=== PATIENT | male | born 1980 | race Caucasian/White ===

== ENCOUNTER 2020-05-03 10:02 | Outpatient (CLI) | payer OTHER, SELFPAY ==
[2020-05-03 10:17] LABS: Basophils Absolute Auto 0.05 K/mm3 (0.00-0.10); Eosinophils Absolute Auto 0.24 K/mm3 (0.02-0.50); Eosinophils Percent Auto 4.7 % (1.0-6.0); Hemoglobin 15.8 g/dL (14.0-18.0); Immature Granulocyte Absolute 0.01 K/mm3 (0.00-0.00); Immature Granulocyte Percent A 0.2 % (0.0-0.0); Lymphocytes Absolute Auto 1.38 K/mm3 (1.10-4.50); Lymphocytes Percent Auto 27.2 % (18.0-42.0); Mean Corpuscular HGB Conc 33.6 g/dL (32.0-36.0); Mean Corpuscular Hemoglobin 27.7 pg (27.0-31.0); Mean Corpuscular Volume 82.3 fL (78.0-102.0); Mean Platelet Volume 9.3 fl (8.7-11.0); Monocytes Absolute Auto 0.72 K/mm3 (0.10-0.90); Monocytes Percent Auto 14.2 % (2.0-11.0); Neutrophils Absolute Auto 2.7 K/mm3 (1.7-7.2); Neutrophils Percent Auto 52.7 % (50.0-70.0); Platelet Count Result 231 K/mm3 (150-420); Red Blood Count 5.71 M/mm3 (4.70-6.10); Red Cell Distribution Width 13.2 % (11.6-14.4); White Blood Count 5.1 K/mm3 (4.8-10.8)
[2020-05-03 10:31] LABS: Hemoglobin A1C 6.4 % (<5.7)
[2020-05-03 10:58] LABS: Microalbumin Urine Random > 400.0 mg/L
[2020-05-03 10:59] LABS: Creatinine Urine 76.65 mg/dL (40-278); MALB Creatinine Ratio 521.8 mg/g (0-30)
[2020-05-03 13:41] LABS: Alanine Aminotransferase 47 U/L (16-63); Albumin Level 3.5 g/dL (3.4-5.0); Anion Gap 13.4 mmol/L (7-16); Aspartate Amino Transferase 25 U/L (15-37); Bilirubin,Total 0.3 mg/dL (0.00-1.00); Blood Urea Nitrogen 13 mg/dL (7-18); Calcium 9.1 mg/dL (8.5-10.1); Carbon Dioxide 25 mmol/L (21-32); Chloride 99 mmol/L (98-108); Estimated Glomerular Filt Rate > 60; Glucose 107 mg/dL (70-99); Osmolality Calculated 276 mOsm/kg (285-295); Potassium 4.4 mmol/L (3.5-5.1); Sodium 133 mmol/L (136-145); Total Protein 6.9 g/dL (6.4-8.2)
[2020-05-03 13:42] LABS: Alkaline Phosphatase 66 U/L (46-116); Cholesterol 173 mg/dL (0-200); HDL Direct 21 mg/dL (40-60); LDL Cholesterol Calculated 79 mg/dL (<130); Triglycerides 364 mg/dL (0-150)
== END 2020-05-03 10:03 | disposition home or self-care (01) ==
PROVIDERS: PCP Nurse Practitioner Family; Visit Provider Nurse Practitioner Family
DX: E78.5 Hyperlipidemia, unspecified (principal); I10 Essential (primary) hypertension; E11.9 Type 2 diabetes mellitus without complications
CPT/HCPCS: 36415; 80053; 80061; 82043; 83036; 85025

== ENCOUNTER 2021-07-25 10:48 | Outpatient (CLI) | payer OTHER, SELFPAY ==
[2021-07-25 11:52] LABS: Hemoglobin A1C 6.9 % (<5.7)
[2021-07-25 12:54] LABS: Alanine Aminotransferase 60 U/L (16-63); Albumin Level 3.6 g/dL (3.4-5.0); Alkaline Phosphatase 69 U/L (46-116); Anion Gap 12 mmol/L (8-16); Aspartate Amino Transferase 29 U/L (15-37); Bilirubin,Total 0.6 mg/dL (0.00-1.00); Blood Urea Nitrogen 11 mg/dL (7-18); Calcium 8.6 mg/dL (8.5-10.1); Carbon Dioxide 24 mmol/L (21-32); Chloride 100 mmol/L (98-108); Estimated Glomerular Filt Rate > 60; Free T4 Free Thyroxine 0.85 ng/dL (0.76-1.46); Glucose 115 mg/dL (70-99); Osmolality Calculated 282 mOsm/kg (285-295); Potassium 4.5 mmol/L (3.5-5.1); Sodium 136 mmol/L (136-145); Thyroid Stimulating Hormone 1.92 uIU/mL (0.36-3.74); Vitamin B12 429 pg/mL (193-986)
[2021-07-28 13:33] LABS: Vitamin D 25 Hydroxy 20 ng/mL (30-100)
[2021-07-30 17:46] LABS: Testosterone Free 178.3 pg/mL (35.0-155.0); Testosterone Total 743 ng/dL (250-1100)
== END 2021-07-25 10:49 | disposition home or self-care (01) ==
LOC: CHSLAB 10:52
PROVIDERS: PCP Nurse Practitioner Family; Visit Provider Nurse Practitioner Family
DX: E11.9 Type 2 diabetes mellitus without complications (principal); R53.83 Other fatigue; E53.8 Deficiency of other specified B group vitamins; Z79.899 Other long term (current) drug therapy
CPT/HCPCS: 36415; 80053; 82306; 82607; 83036; 84402; 84403; 84439; 84443

== ENCOUNTER 2021-09-10 15:17 | Outpatient (CLI) | payer OTHER, SELFPAY ==
[2021-09-10 16:21] LABS: SARS-CoV-2 RNA PCR Negative (Negative)
== END 2021-09-10 15:18 | disposition home or self-care (01) ==
LOC: CHSLAB 15:22
PROVIDERS: PCP Nurse Practitioner Family; Visit Provider Nurse Practitioner Family
DX: Z20.822 Contact with and (suspected) exposure to COVID-19 (principal)
CPT/HCPCS: C9803; U0003; U0005

== ENCOUNTER 2021-09-13 08:06 | Outpatient (CLI) | payer OTHER, SELFPAY ==
[2021-09-13 09:06] LABS: SARS-CoV-2 RNA PCR Negative (Negative)
== END 2021-09-13 08:07 | disposition home or self-care (01) ==
PROVIDERS: PCP Nurse Practitioner Family; Visit Provider Nurse Practitioner Family
DX: Z20.822 Contact with and (suspected) exposure to COVID-19 (principal)
CPT/HCPCS: C9803; U0003; U0005

== ENCOUNTER 2022-03-13 09:32 | Outpatient (CLI) | payer OTHER, SELFPAY ==
--- NOTE | 2022-03-13 09:35 | ECG_ITS ---
Measurements Intervals [place] Rate: 67 P: 54 AK: 172 QRS: 47 QRSD: 97 T: 51 QT: 370 QTc: 391 Interpretive Statements SINUS RHYTHM NONSPECIFIC T-WAVE ABNORMALITY ABNORMAL ECG NO PREVIOUS ECG AVAILABLE FOR COMPARISON Electronically Signed On 03-13-2022 16:39:33 CDT by David Dykes M.D.
[2022-03-13 09:44] LABS: Basophils Absolute Auto 0.07 K/mm3 (0.00-0.10); Basophils Percent Auto 0.9 % (0.0-1.0); Eosinophils Absolute Auto 0.17 K/mm3 (0.02-0.50); Eosinophils Percent Auto 2.1 % (1.0-6.0); Hematocrit 49.6 % (40.0-54.0); Immature Granulocyte Absolute 0.05 K/mm3 (0.00-0.00); Immature Granulocyte Percent A 0.6 % (0.0-0.0); Lymphocytes Absolute Auto 1.11 K/mm3 (1.10-4.50); Lymphocytes Percent Auto 13.8 % (18.0-42.0); Mean Corpuscular HGB Conc 32.3 g/dL (32.0-36.0); Mean Corpuscular Hemoglobin 26.4 pg (27.0-31.0); Mean Corpuscular Volume 81.7 fL (78.0-102.0); Mean Platelet Volume 8.9 fl (8.7-11.0); Monocytes Absolute Auto 0.89 K/mm3 (0.10-0.90); Neutrophils Absolute Auto 5.8 K/mm3 (1.7-7.2); Neutrophils Percent Auto 71.6 % (50.0-70.0); Platelet Count Result 280 K/mm3 (150-420); Red Blood Count 6.07 M/mm3 (4.70-6.10); Red Cell Distribution Width 13.9 % (11.6-14.4); White Blood Count 8.1 K/mm3 (4.8-10.8)
[2022-03-13 10:15] LABS: Hemoglobin A1C 8.5 % (<5.7)
[2022-03-13 10:38] LABS: Alanine Aminotransferase 53 U/L (16-63); Albumin Level 3.6 g/dL (3.4-5.0); Alkaline Phosphatase 77 U/L (46-116); Anion Gap 11 mmol/L (8-16); Aspartate Amino Transferase 30 U/L (15-37); Bilirubin,Total 0.4 mg/dL (0.00-1.00); Blood Urea Nitrogen 12 mg/dL (7-18); Calcium 9.3 mg/dL (8.5-10.1); Carbon Dioxide 26 mmol/L (21-32); Chloride 96 mmol/L (98-108); Cholesterol 206 mg/dL (0-200); Estimated Glomerular Filt Rate > 60; Glucose 179 mg/dL (70-99); HDL Direct 34 mg/dL (40-60); LDL Cholesterol Calculated 77 mg/dL (<130); Osmolality Calculated 279 mOsm/kg (285-295); Potassium 4.6 mmol/L (3.5-5.1); Sodium 133 mmol/L (136-145); Total Protein 7.4 g/dL (6.4-8.2); Triglycerides 477 mg/dL (0-150)
[2022-03-13 10:44] LABS: LDL Cholesterol Direct 97 mg/dL (0-130)
[2022-03-18 18:03] LABS: Vitamin D 25 Hydroxy 14 ng/mL (30-100)
== END 2022-03-13 09:33 | disposition home or self-care (01) ==
PROVIDERS: PCP Nurse Practitioner Family; Visit Provider Nurse Practitioner Family
DX: Z00.00 Encounter for general adult medical examination without abnormal findings (principal); R07.89 Other chest pain; I10 Essential (primary) hypertension; E11.9 Type 2 diabetes mellitus without complications; E78.5 Hyperlipidemia, unspecified; Z79.899 Other long term (current) drug therapy; E55.9 Vitamin D deficiency, unspecified
CPT/HCPCS: 36415; 80053; 80061; 82306; 83036; 83721; 85025; 93005

== ENCOUNTER 2022-04-04 21:28 | Emergency (ER) | payer OTHER, SELFPAY ==
--- NOTE | ~2022-04-04 | XR_ITS ---
EXAMINATION: XR chest 2V DATE: 04/04/2022 21:45 INDICATION: Cough and fever. Right chest pain. TECHNIQUE: Frontal and lateral views of the chest were obtained. COMPARISON: Chest 2 views 04/15/2017 FINDINGS: There are airspace opacities in right middle lobe, consistent with pneumonia. No pleural ef fusion or pneumothorax. The heart size is normal. IMPRESSION: 1. Right middle lobe pneumonia. Reviewed, dictated and finalized at location A.
[2022-04-04 21:34] VITALS: BP 162/86; PULSE 98; RESP 20; TEMP 36.9; O2SAT 94
--- NOTE | 2022-04-04 21:34 | ED.URI ---
HPI - URI/Sore Throat General Chief Complaint: Upper Respiratory Infection Stated Complaint: right side pain, fever, chest pain Time Seen by Provider: 04/04/22 21:37 Source: patient, family and RN notes reviewed Mode of arrival: ambulatory Limitations: no limitations History of Present Illness MD elicited complaint: fever and cough Onset (ago): week(s) (2) Consistency: intermittent Severity: moderate Description of mucous: clear Able to tolerate fluids by mouth: Yes Exacerbating factors: exertion and deep breaths Relieving factors: NSAID Associated symptoms: fever, chills, myalgias, headache, rhinorrhea, cough, chest pain and diarrhea Treatments prior to arrival: other ( 7 day steroid dose pack that belonged to his son) Related Data Home Medications Medication Instructions Recorded Confirmed omega-3 fatty acids 1,000 mg 2,000 mg PO BID cap 05/03/20 04/04/22 capsule Allergies Allergy/AdvReac Type Severity Reaction Status Date / Time lisinopril Allergy Intermediate Unknown Verified 03/13/22 09:17 [email or web address] [Chantix] Allergy Intermediate nausea Verified 03/13/22 09:17 Review of Systems Review of Systems: All systems reviewed & are unremarkable except as noted in HPI and below ENT: Denies sore throat Cardiovascular: Cardiovascular: Reports chest pain (from coughing on right side), Denies rapid heart rate and Denies radiating jaw, neck or arm pain PMFSH Past Medical History Medical History (Updated 04/04/22 @ 22:44 by Nato Heard MD) Fatty liver GERD (gastroesophageal reflux disease) HTN (hypertension) Hyperlipidemia NADER (obstructive sleep apnea) No Cpap Tobacco dependence Type 2 diabetes mellitus Family History Family History Father Acute myocardial infarction Social History Social History Smoking status: Current every day smoker Tobacco type: cigarettes Alcohol intake: current Drinks per week: 1 Alcohol use details: Beer Substance use: never Substance use type: does not use Exam Const: General: healthy appearing, no acute distress and alert Nutritional Appearance: well nourished and obese centrally obese Orientation/consciousness: patient oriented x3 HENMT: Head: normal to inspection Ears: external ears normal Face and sinus: normal facial exam Mouth: Yes moist mucous membranes Eyes: Conjunctivae: conjunctivae normal Pupils: Equal, round and reactive pupils present EOM: EOMs intact bilaterally Neck: Neck: normal visual inspection Resp: Effort & Inspection: normal respiratory effort Auscultation: rhonchi right lower Cardio: Rate: regular rate Rhythm: regular rhythm GI: GI Palp: Yes Soft to palpation and No Tenderness to palpation present (GI) Auscultation: normal bowel sounds Back/Spine/Pelvis: Cervical Spine: cervical ROM normal Thoracic/Lumbar Spine: thoraco-lumbar ROM normal Skin: General skin exam: normal color Rashes: no rashes Neuro: General: patient oriented x3, moves all extremities, no meningeal signs, no focal motor deficits and CN's II-XI intact bilaterally Speech: normal speech Gait exam (Neuro): Normal gait present Extrem: General: normal to inspection and no clubbing, cyanosis or edema Psych: Appearance: grossly normal and well kempt Mental Status: mental status grossly normal Affect: normal affect Attitude: cooperative Thought content: Yes Normal thought content present Course Vital Signs Vital signs: Vital Signs Temperature 36.9 C 04/04/22 21:34 Pulse Rate 98 04/04/22 21:34 Respiratory Rate 20 04/04/22 21:34 Blood Pressure 162/86 H 04/04/22 21:34 Pulse Oximetry 94 04/04/22 21:34 Temperature 36.9 C 04/04/22 21:34 Pulse Rate 99 04/04/22 23:40 Respiratory Rate 20 04/04/22 23:40 Blood Pressure 148/83 H 04/04/22 23:40 Pulse Oximetry 95 04/04/22 23:40 MDM - URI/Sore Throat Lab Data At
[2022-04-04 22:02] LABS: Basophils Absolute Auto 0.11 K/mm3 (0.00-0.10); Basophils Percent Auto 0.6 % (0.0-1.0); Eosinophils Absolute Auto 0.13 K/mm3 (0.02-0.50); Eosinophils Percent Auto 0.7 % (1.0-6.0); Hematocrit 42.8 % (40.0-54.0); Hemoglobin 14.2 g/dL (14.0-18.0); Immature Granulocyte Absolute 0.32 K/mm3 (0.00-0.00); Immature Granulocyte Percent A 1.8 % (0.0-0.0); Lymphocytes Absolute Auto 1.69 K/mm3 (1.10-4.50); Lymphocytes Percent Auto 9.7 % (18.0-42.0); Mean Corpuscular HGB Conc 33.2 g/dL (32.0-36.0); Mean Corpuscular Hemoglobin 26.4 pg (27.0-31.0); Mean Corpuscular Volume 79.6 fL (78.0-102.0); Mean Platelet Volume 8.5 fl (8.7-11.0); Monocytes Absolute Auto 1.65 K/mm3 (0.10-0.90); Monocytes Percent Auto 9.5 % (2.0-11.0); Neutrophils Absolute Auto 13.5 K/mm3 (1.7-7.2); Neutrophils Percent Auto 77.7 % (50.0-70.0); Platelet Count Result 421 K/mm3 (150-420); Red Blood Count 5.38 M/mm3 (4.70-6.10); White Blood Count 17.4 K/mm3 (4.8-10.8)
[2022-04-04 22:13] LABS: CRP 7.5 mg/dL (0.0-0.9)
[2022-04-04 22:17] LABS: Alanine Aminotransferase 40 U/L (16-63); Albumin Level 3.1 g/dL (3.4-5.0); Alkaline Phosphatase 79 U/L (46-116); Anion Gap 13 mmol/L (8-16); Aspartate Amino Transferase 16 U/L (15-37); Bilirubin,Total 0.4 mg/dL (0.00-1.00); Blood Urea Nitrogen 15 mg/dL (7-18); Calcium 9.1 mg/dL (8.5-10.1); Carbon Dioxide 22 mmol/L (21-32); Chloride 90 mmol/L (98-108); Estimated Glomerular Filt Rate > 60; Glucose 257 mg/dL (70-99); Magnesium 1.8 mg/dL (1.8-2.4); Osmolality Calculated 269 mOsm/kg (285-295); Potassium 3.8 mmol/L (3.5-5.1); Sodium 125 mmol/L (136-145); Total Protein 7.8 g/dL (6.4-8.2)
[2022-04-04 22:23] LABS: SARS-CoV-2 RNA PCR Negative (Negative)
[2022-04-04 22:24] LABS: Lactic Acid Reflex 1.5 mmol/L (0.4-2.0)
[2022-04-04 22:32] LABS: Influenza A QL RT-PCR Negative (Negative); Influenza B QL RT-PCR Negative (Negative)
[2022-04-04] MEDS: SODIUM CHLORIDE 0.9% IV 1,000 ML 999 ML IV CONT (22:41)
[2022-04-04] MEDS: methylPREDNISolone SOD SUCC 125 MG VIAL IV PUSH (23:13)
[2022-04-04 23:40] VITALS: BP 148/83; PULSE 99; RESP 20; O2SAT 95
--- NOTE | 2022-04-04 23:46 | PC.NURSE ---
Pt states around 2320 after receiving his solumedrol dose, he states he started having right sided flank pain. Pt describes the pain as a sharp stabbing. RN notified ERP. ERP directs pt to continue taking medications and follow up with PCP.
== END 2022-04-04 23:55 | disposition home or self-care (01) ==
PROVIDERS: Emergency Provider Emergency Medicine; PCP Nurse Practitioner Family
DX: E87.1 Hypo-osmolality and hyponatremia (principal); J18.9 Pneumonia, unspecified organism; Z20.822 Contact with and (suspected) exposure to COVID-19
CPT/HCPCS: 36415; 71046; 80053; 83605; 83735; 85025; 86140; 87502; 96361; 96374; 99284; C9803; J0696; J2930; J7030; U0003; U0005

== ENCOUNTER 2023-09-22 09:18 | Outpatient (CLI) | payer OTHER, SELFPAY ==
[2023-09-22 09:36] LABS: Basophils Absolute Auto 0.06 K/mm3 (0.00-0.10); Basophils Percent Auto 1.3 % (0.0-1.0); Eosinophils Percent Auto 6.7 % (1.0-6.0); Hematocrit 46.6 % (40.0-54.0); Hemoglobin 15.9 g/dL (14.0-18.0); Immature Granulocyte Absolute 0.02 K/mm3 (0.00-0.00); Immature Granulocyte Percent A 0.4 % (0.0-0.0); Lymphocytes Absolute Auto 1.33 K/mm3 (1.10-4.50); Lymphocytes Percent Auto 29.9 % (18.0-42.0); Mean Corpuscular HGB Conc 34.1 g/dL (32.0-36.0); Mean Corpuscular Hemoglobin 29.4 pg (27.0-31.0); Mean Corpuscular Volume 86.1 fL (78.0-102.0); Mean Platelet Volume 8.7 fl (8.7-11.0); Monocytes Absolute Auto 0.63 K/mm3 (0.10-0.90); Monocytes Percent Auto 14.2 % (2.0-11.0); Neutrophils Absolute Auto 2.1 K/mm3 (1.7-7.2); Neutrophils Percent Auto 47.5 % (50.0-70.0); Platelet Count Result 239 K/mm3 (150-420); Red Blood Count 5.41 M/mm3 (4.70-6.10); Red Cell Distribution Width 12.6 % (11.6-14.4); White Blood Count 4.5 K/mm3 (4.8-10.8)
[2023-09-22 09:47] LABS: Hemoglobin A1C 6.7 % (<5.7)
[2023-09-22 10:12] LABS: Alanine Aminotransferase 56 U/L (16-63); Albumin Level 3.5 g/dL (3.4-5.0); Alkaline Phosphatase 77 U/L (46-116); Anion Gap 10 mmol/L (8-16); Aspartate Amino Transferase 22 U/L (15-37); Bilirubin,Total 0.3 mg/dL (0.00-1.00); Blood Urea Nitrogen 13 mg/dL (7-18); Calcium 9.5 mg/dL (8.5-10.1); Carbon Dioxide 27 mmol/L (21-32); Chloride 99 mmol/L (98-108); Cholesterol 159 mg/dL (0-200); Estimated Glomerular Filt Rate > 60; Glucose 154 mg/dL (70-99); HDL Direct 31 mg/dL (40-60); LDL Cholesterol Calculated 38 mg/dL (<130); Osmolality Calculated 285 mOsm/kg (285-295); Potassium 4.5 mmol/L (3.5-5.1); Sodium 136 mmol/L (136-145); Total Protein 7.1 g/dL (6.4-8.2); Triglycerides 452 mg/dL (0-150)
[2023-09-22 10:15] LABS: LDL Cholesterol Direct 70 mg/dL (0-130)
[2023-09-25 11:35] LABS: Vitamin D 25 Hydroxy 17 ng/mL (30-100)
== END 2023-09-22 09:19 | disposition home or self-care (01) ==
LOC: CHSLAB 09:19
PROVIDERS: PCP Nurse Practitioner Family; Visit Provider Nurse Practitioner Family
DX: E78.5 Hyperlipidemia, unspecified (principal); E55.9 Vitamin D deficiency, unspecified; Z79.899 Other long term (current) drug therapy; E11.9 Type 2 diabetes mellitus without complications; I10 Essential (primary) hypertension
CPT/HCPCS: 36415; 80053; 80061; 82306; 83036; 83721; 85025

== ENCOUNTER 2023-12-30 16:33 | Emergency (ER) | payer OTHER, SELFPAY ==
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
[2023-12-30 16:45] VITALS: BP 147/95; PULSE 83; RESP 16; TEMP 36.7; O2SAT 97
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
[2023-12-30] MEDS: KETOROLAC 30 MG/ML VIAL (*BKC) IM (18:22)
--- NOTE | 2023-12-30 19:11 | PC.NURSE ---
patient report received from SAKINA Burr. patient awaiting results and plan.
--- NOTE | 2023-12-30 19:16 | PC.NURSE ---
patient asking how much longer he will be here. Patient update provided, awaiting discharge papers as ERP remains in another room with another patient.
[2023-12-30 19:30] VITALS: BP 145/92; PULSE 77; RESP 18; TEMP 36.6; O2SAT 96
--- NOTE | 2023-12-30 19:41 | PC.NURSE ---
patient update provided by Dr. Ryder regarding results of imaging and plan.
== END 2023-12-30 19:57 | disposition home or self-care (01) ==
PROVIDERS: Emergency Provider Internal Medicine Critical Care Medicine; PCP Nurse Practitioner Family
DX: M25.511 Pain in right shoulder (principal); M25.551 Pain in right hip; E11.9 Type 2 diabetes mellitus without complications; E78.5 Hyperlipidemia, unspecified; I10 Essential (primary) hypertension; F17.210 Nicotine dependence, cigarettes, uncomplicated; V89.2XXA Person injured in unspecified motor-vehicle accident, traffic, initial encounter; Y92.413 State road as the place of occurrence of the external cause
CPT/HCPCS: 70450; 71045; 72125; 72170; 96372; 99284; J1885

== ENCOUNTER 2024-01-08 15:48 | Outpatient (RCR) | payer OTHER, SELFPAY ==
[2024-01-08 16:07] VITALS: BP_SYST 175
--- NOTE | 2024-01-12 07:17 | OPREHPOC ---
Outpatient Therapy Plan of Care This is a Multidisciplinary Plan of Care that may contain components documented by all disciplines (PT, OT, and ST.) PT Problem 1 PT Problem #1 Knowledge Deficit PT Goal 1 Goal Patient to demonstrate independence with HEP Target Visit 4 PT Problem 2 PT Problem #2 Pain PT Goal 1 Goal Patient to report highest pain at 2/10 Target Visit 8 PT Problem 3 PT Problem #3 Impaired Range of Motion PT Goal 1 Goal Patient to demonstrate 160 deg of R shoulder flexion and abduction with no increase in pain to return to house hold tasks at PLOF Target Visit 8 PT Problem 4 PT Problem #4 Impaired Strength PT Goal 1 Goal Patient to demonstrate 5/5 strength of the R shoulder to return to heavy house hold tasks at PLOF Target Visit 8 PT Problem 5 PT Problem #5 Impaired Functional Mobil PT Goal 1 Goal 1. Patient to score 20% improvement on LEFS 2. Patient to report ability to dress with no increase in R shoulder pain
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
--- NOTE | 2024-01-21 15:01 | PCPTNOTE ---
patient had to cancel skilled PT appointment today due to a conflict with work.
[2024-02-04 15:47] VITALS: BP_SYST 175
--- NOTE | 2024-02-04 16:34 | OPREHPOC ---
Outpatient Therapy Plan of Care This is a Multidisciplinary Plan of Care that may contain components documented by all disciplines (PT, OT, and ST.) PT Problem 1 PT Problem #1 Knowledge Deficit PT Goal 1 Goal Patient to demonstrate independence with HEP Target Visit 4 Progress Met PT Problem 2 PT Problem #2 Pain PT Goal 1 Goal Patient to report highest pain at 2/10 Target Visit 8 Progress Not Met PT Problem 3 PT Problem #3 Impaired Range of Motion PT Goal 1 Goal Patient to demonstrate 160 deg of R shoulder flexion and abduction with no increase in pain to return to house hold tasks at PLOF Target Visit 8 Progress Partially Met Comment not met for abduction PT Problem 4 PT Problem #4 Impaired Strength PT Goal 1 Goal Patient to demonstrate 5/5 strength of the R shoulder to return to heavy house hold tasks at PLOF Target Visit 8 Progress Partially Met PT Problem 5 PT Problem #5 Impaired Functional Mobil PT Goal 1 Goal 1. Patient to score 20% improvement on LEFS 2. Patient to report ability to dress with no increase in R shoulder pain Progress Partially Met Comment met for dressing
--- NOTE | 2024-02-04 16:34 | PTOPDC ---
Assessment and note entered by Marielena Mcleod DPT Evaluation Information Assessment Status Re-evaluation Diagnosis R shoulder pain Onset 12/29/23 Subjective Information patient reports he continues to have pain with lifting moderate to heavy objects out to the side. he also reports he will occasionally get pain from sleeping on his side. he reports he is independent with HEP Reported Pain Level Pain Score 0: Self Report Assessment PT Clinical Summary Mr. Frias has been seen for 8 visits of skilled PT from 01/08/24-02/04/24. He has made some progress in strength and ROM of the R shoulder but continues to demonstrate deficits. He also reports that lifting out to the side for house hold and work duties and sleeping increase his pain. He reports pain persists at the lateral shoulder and posterior cuff. He is independent with [facility] and will be discharged at this time with recommendation for further imaging. Plan of Care PT Services Indicated No
== END 2024-02-04 16:50 | disposition home or self-care (01) ==
LOC: CHSPT 15:48
PROVIDERS: PCP Family Medicine; Visit Provider Nurse Practitioner Family
DX: M25.511 Pain in right shoulder (principal)
CPT/HCPCS: 97014; 97110; 97140; 97150; 97161; G0283

== ENCOUNTER 2024-02-20 10:05 | Outpatient (CLI) | payer OTHER, SELFPAY ==
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
== END 2024-02-20 10:06 | disposition home or self-care (01) ==
LOC: CHSIMG 10:07
PROVIDERS: PCP Nurse Practitioner Family; Visit Provider Nurse Practitioner Family
DX: M25.511 Pain in right shoulder (principal); M77.8 Other enthesopathies, not elsewhere classified; M19.011 Primary osteoarthritis, right shoulder; M75.51 Bursitis of right shoulder
CPT/HCPCS: 73221

== ENCOUNTER 2024-03-03 08:27 | Outpatient (CLI) | payer OTHER, SELFPAY ==
[2024-03-03 08:56] LABS: Basophils Absolute Auto 0.06 K/mm3 (0.00-0.10); Eosinophils Absolute Auto 0.29 K/mm3 (0.02-0.50); Eosinophils Percent Auto 4.8 % (1.0-6.0); Hemoglobin 15.8 g/dL (14.0-18.0); Immature Granulocyte Absolute 0.01 K/mm3 (0.00-0.00); Immature Granulocyte Percent A 0.2 % (0.0-0.0); Lymphocytes Absolute Auto 1.41 K/mm3 (1.10-4.50); Lymphocytes Percent Auto 23.4 % (18.0-42.0); Mean Corpuscular HGB Conc 32.9 g/dL (32-36); Mean Corpuscular Hemoglobin 26.9 pg (27.0-31.0); Mean Corpuscular Volume 81.6 fL (78.0-102.0); Mean Platelet Volume 8.6 fl (8.7-11.0); Monocytes Absolute Auto 0.76 K/mm3 (0.10-0.90); Monocytes Percent Auto 12.6 % (2.0-11.0); Platelet Count Result 269 K/mm3 (150-420); Red Blood Count 5.88 M/mm3 (4.70-6.10)
[2024-03-03 09:10] LABS: Hemoglobin A1C 6.8 % (<5.7)
[2024-03-03 10:05] LABS: Alanine Aminotransferase 52 U/L (16-63); Albumin Level 3.7 g/dL (3.4-5.0); Alkaline Phosphatase 62 U/L (46-116); Anion Gap 15 mmol/L (4-12); Aspartate Amino Transferase 25 U/L (15-37); Bilirubin,Total 0.3 mg/dL (0.00-1.00); Blood Urea Nitrogen 12 mg/dL (7-18); Calcium 9.4 mg/dL (8.5-10.1); Carbon Dioxide 26 mmol/L (21-32); Chloride 96 mmol/L (98-108); Cholesterol 174 mg/dL (0-200); Estimated Glomerular Filt Rate > 60; Glucose 131 mg/dL (70-99); HDL Direct 39 mg/dL (40-60); LDL Cholesterol Calculated 94 mg/dL (<130); Magnesium 1.7 mg/dL (1.8-2.4); Osmolality Calculated 285 mOsm/kg (285-295); Potassium 4.4 mmol/L (3.5-5.1); Sodium 137 mmol/L (136-145); Triglycerides 206 mg/dL (0-150)
[2024-03-08 20:46] LABS: Vitamin D 25 Hydroxy 26 ng/mL (30-100)
== END 2024-03-03 08:28 | disposition home or self-care (01) ==
LOC: CHSLAB 08:29
PROVIDERS: PCP Nurse Practitioner Family; Visit Provider Nurse Practitioner Family
DX: Z13.6 Encounter for screening for cardiovascular disorders (principal); E78.5 Hyperlipidemia, unspecified; G25.81 Restless legs syndrome; E11.9 Type 2 diabetes mellitus without complications; Z79.899 Other long term (current) drug therapy; E55.9 Vitamin D deficiency, unspecified; I10 Essential (primary) hypertension
CPT/HCPCS: 36415; 80053; 80061; 82306; 83036; 83735; 85025

== ENCOUNTER 2024-10-17 12:36 | Outpatient (CLI) | payer OTHER, SELFPAY ==
[2024-10-17 12:49] LABS: Basophils Absolute Auto 0.06 K/mm3 (0.00-0.10); Basophils Percent Auto 0.9 % (0.0-1.0); Eosinophils Absolute Auto 0.18 K/mm3 (0.02-0.50); Eosinophils Percent Auto 2.7 % (1.0-6.0); Hematocrit 48.5 % (40.0-54.0); Hemoglobin 16.6 g/dL (14.0-18.0); Immature Granulocyte Absolute 0.03 K/mm3 (0.00-0.00); Immature Granulocyte Percent A 0.5 % (0.0-0.0); Lymphocytes Absolute Auto 1.36 K/mm3 (1.10-4.50); Lymphocytes Percent Auto 20.5 % (18.0-42.0); Mean Corpuscular HGB Conc 34.2 g/dL (32-36); Mean Corpuscular Hemoglobin 29.1 pg (27.0-31.0); Mean Corpuscular Volume 85.1 fL (78.0-102.0); Mean Platelet Volume 8.7 fl (8.7-11.0); Monocytes Absolute Auto 0.92 K/mm3 (0.10-0.90); Monocytes Percent Auto 13.9 % (2.0-11.0); Neutrophils Absolute Auto 4.09 K/mm3 (1.70-7.20); Neutrophils Percent Auto 61.5 % (50.0-70.0); Platelet Count Result 268 K/mm3 (150-420); Red Cell Distribution Width 13.7 % (11.6-14.4); White Blood Count 6.6 K/mm3 (4.8-10.8)
[2024-10-17 13:07] LABS: Hemoglobin A1C 5.9 % (<5.7)
[2024-10-17 13:17] LABS: Alanine Aminotransferase 43 U/L (16-63); Alkaline Phosphatase 63 U/L (46-116); Anion Gap 10 mmol/L (4-12); Aspartate Amino Transferase 18 U/L (15-37); Bilirubin,Total 0.5 mg/dL (0.00-1.00); Blood Urea Nitrogen 18 mg/dL (7-18); Calcium 9.8 mg/dL (8.5-10.1); Carbon Dioxide 28 mmol/L (21-32); Chloride 98 mmol/L (98-108); Cholesterol 204 mg/dL (0-200); Estimated Glomerular Filt Rate > 60; Glucose 117 mg/dL (70-99); HDL Direct 40 mg/dL (40-60); Iron 81 ug/dL (65-175); LDL Cholesterol Calculated 113 mg/dL (<130); Osmolality Calculated 284 mOsm/kg (285-295); Potassium 4.3 mmol/L (3.5-5.1); Sodium 136 mmol/L (136-145); Total Protein 7.3 g/dL (6.4-8.2); Triglycerides 255 mg/dL (0-150)
== END 2024-10-17 12:37 | disposition home or self-care (01) ==
LOC: CHSLAB 12:37
PROVIDERS: PCP Family Medicine; Visit Provider Nurse Practitioner Family
DX: Z01.818 Encounter for other preprocedural examination (principal); R25.2 Cramp and spasm; E11.9 Type 2 diabetes mellitus without complications; Z13.6 Encounter for screening for cardiovascular disorders; N52.9 Male erectile dysfunction, unspecified
CPT/HCPCS: 36415; 80053; 80061; 83036; 83540; 84402; 84403; 85025

== ENCOUNTER 2024-10-19 16:05 | Outpatient (CLI) | payer OTHER, SELFPAY ==
--- NOTE | ~2024-10-19 | XR_ITS ---
CHEST RADIOGRAPH, PA AND LATERAL CLINICAL HISTORY: Z01.818 - Encounter for other preprocedural examination . COMPARISON: 04/04/2022 TECHNIQUE: PA and lateral views of the chest. FINDINGS The cardiomediastinal silhouette is unremarkable. The lungs are clear. Visualized osseous structures and soft tissues are unremarkable. IMPRESSION: No focal infiltrate or effusion. Reviewed, dictated and finalized at location A. BURNER
--- NOTE | 2024-10-19 16:10 | ECG_ITS ---
Test Date: 2024-10-19 16:26:12 Measurements Intervals [place] Rate: 71 P: 51 SD: 168 QRS: 63 QRSD: 87 T: 67 QT: 365 QTc: 397 Interpretive Statements SINUS RHYTHM BASELINE ARTIFACT- III, V1, V3 NORMAL ECG No previous ECG available for comparison Electronically Signed On 10-19-2024 18:38:41 FOUNDRY METALLURGIST by David Bernard D.O.
== END 2024-10-19 16:06 | disposition home or self-care (01) ==
LOC: CHSIMG 16:07
PROVIDERS: PCP Family Medicine; Visit Provider Nurse Practitioner Family
DX: Z01.818 Encounter for other preprocedural examination (principal)
CPT/HCPCS: 71046; 93005

== ENCOUNTER 2024-12-20 09:56 | Outpatient (RCR) | payer OTHER, SELFPAY ==
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
--- NOTE | 2024-12-26 12:42 | PCPTNOTE ---
I reviewed the License Pending Therapist's documentation and agree with the findings.
--- NOTE | 2025-01-03 10:14 | OPREHPOC ---
Outpatient Therapy Plan of Care This is a Multidisciplinary Plan of Care that may contain components documented by all disciplines (PT, OT, and ST.) PT Problem 1 PT Problem #1 Knowledge Deficit PT Goal 1 Goal / Goal Update patient to demonstrate independence with HEP Target Visit 6 Progress Met PT Problem 2 PT Problem #2 Pain PT Goal 1 Goal / Goal Update 1. patient to report highest pain at 4/10 2. patient to report ability to sleep with no disturbance due to R shoulder pain Target Visit 12 Progress Not Met PT Problem 3 PT Problem #3 Impaired Range of Motion PT Goal 1 Goal / Goal Update 1. patient to demonstrates pain free passive R shoulder flexion to 160 deg Target Visit 6 Progress Not Met PT Goal 2 Goal / Goal Update 1. Patient to demonstrates active R shoulder flexion to 160 deg to reach into cabinets 2. Patient to demonstrates functional IR reach to lumbar spine 3. Patient to demonstrate functional ER reach to C4 Target Visit 12 Progress Not Met PT Problem 4 PT Problem #4 Impaired Strength PT Goal 1 Goal / Goal Update 1. patient to demonstrate 5/5 R shoulder strength to return to heavy house hold tasks at PLOF Target Visit 12 Progress Not Met PT Problem 5 PT Problem #5 Impaired Functional Mobility PT Goal 1 Goal / Goal Update 1. patient to improve QuickDASH to less than 20% impairment 2. patient to demonstrate lifting 10# overhead 3. patient to lift 40# from floor to waist Target Visit 12 Progress Not Met
--- NOTE | 2025-01-03 10:14 | PTOPPROG ---
Assessment and note entered by JT File, PT Evaluation Information Assessment Status Progress Diagnosis R shoulder pain Other ICD-10 Condition Codes ( Z53.33 PT) Onset 11/15/24 Subjective Information patient reports he is hurting today. he reports he is no longer wearing the sling at night and thinks this is the reason for his increased pain/ symptoms today. Assessment PT Clinical Summary mr. conde presents to skilled PT services for his 5th skilled PT visit. he is in increased pain today in the R shoulder from beginning to sleep without the sling at night. he continues to lack achievement of his goals listed below. he would benefit from continued skilled PT to improve his strength, rom, functional lifting to achieve his goals and return to his prior level functional activity performance/quality of life. Plan of Care Interventions Electrical Stimulation,Hot Pack/Cold Pack,Manual Therapy,Neuro Re-education,Patient/Caregiver Education,Therapeutic Activities,Therapeutic Exercise PT Services Indicated Yes Treatment Frequency and continue per initial POC of 3x for 12 visits Duration These treatments will address the objective and functional deficits as defined above. The patient will be advanced safely and appropriately in order for the patient to progress towards his/her prior level of function. Additional exercises will be introduced and as well as a comprehensive home exercise program upon discharge, if needed, ?to ensure carryover of functional gains achieved in the clinic. This treatment plan has been reviewed and agreement upon by the patient.
--- NOTE | 2025-01-10 11:46 | PTOPREEVAL ---
Assessment and note entered by Marielena Mcleod DPT Evaluation Information Assessment Status Re-evaluation Diagnosis R shoulder pain Other ICD-10 Condition Codes ( Z53.33 PT) Onset 11/15/24 Subjective Information patient reports he has been having soreness following PT. he reports he is back to sleeping without difficulty. he reports the pain medication decreases pain effectively. Reported Pain Level Pain Score 4: Self Report Assessment PT Clinical Summary Patient is progressing well at this time and appropriately . He returns to [facility] on 01/12/25. He is continues to have soreness following PT session. He has returned to sleeping without difficulty. He will continued to be progressed per protocol and patient tolerance. Plan of Care Interventions Electrical Stimulation,Hot Pack/Cold Pack,Manual Therapy,Neuro Re-education,Patient/Caregiver Education,Therapeutic Activities,Therapeutic Exercise PT Services Indicated Yes Treatment Frequency and continue per initial POC of 3x for 12 visits Duration These treatments will address the objective and functional deficits as defined above. The patient will be advanced safely and appropriately in order for the patient to progress towards his/her prior level of function. Additional exercises will be introduced and as well as a comprehensive home exercise program upon discharge, if needed, ?to ensure carryover of functional gains achieved in the clinic. This treatment plan has been reviewed and agreement upon by the patient.
[2025-03-02 10:00] VITALS: BP_SYST 170
--- NOTE | 2025-03-02 10:46 | OPREHPOC ---
Outpatient Therapy Plan of Care This is a Multidisciplinary Plan of Care that may contain components documented by all disciplines (PT, OT, and ST.) PT Problem 1 PT Problem #1 Knowledge Deficit PT Goal 1 Goal / Goal Update patient to demonstrate independence with HEP Target Visit 6 Progress Met PT Goal 2 Goal / Goal Update continue to progress PT Problem 2 PT Problem #2 Pain PT Goal 1 Goal / Goal Update 1. patient to report highest pain at 4/10 2. patient to report ability to sleep with no disturbance due to R shoulder pain Target Visit 12 Progress Not Met PT Goal 2 Goal / Goal Update continue Target Visit 32 PT Problem 3 PT Problem #3 Impaired Range of Motion PT Goal 1 Goal / Goal Update 1. patient to demonstrates pain free passive R shoulder flexion to 160 deg Target Visit 22 Progress Not Met PT Goal 2 Goal / Goal Update 1. Patient to demonstrates active R shoulder flexion to 160 deg to reach into cabinets 2. Patient to demonstrates functional IR reach to lumbar spine 3. Patient to demonstrate functional ER reach to C4 Target Visit 32 Progress Not Met PT Problem 4 PT Problem #4 Impaired Strength PT Goal 1 Goal / Goal Update 1. 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 patient to improve QuickDASH to less than 20% impairment 2. patient to demonstrate lifting 10# overhead 3. patient to lift 40# from floor to waist Target Visit 22 Progress Not Met PT Goal 2 Goal / Goal Update continue Target Visit 32
--- NOTE | 2025-03-02 10:46 | PTOPPROG ---
Assessment and note entered by Rosa Jaeger, PT Evaluation Information Assessment Status Progress Diagnosis R shoulder pain Other ICD-10 Condition Codes ( Z53.33 PT) Onset 11/15/24 Subjective Information Hayden reports he saw his surgeon last week and was prescribed 6 more weeks of PT to work on shoulder strength. He is still having low level pain in the right shoulder that will increase when he tries to lift too much. He notes ongoing weakness in the right shoulder and he is not able to work yet. Assessment PT Clinical Summary Mr. Frias has been seen for 22 visits of skilled PT and is progressing per protocol at this time. He demonstrates improved active and passive ROM of the R shoulder as well as improving right shoulder strength. He also reports improving pain levels but still has difficulty lifting and occasionally sleeping. He continues to demonstrate weakness in the right shoulder preventing him from returning to work. He will continue to benefit from skilled PT to address impairments and return to PLOF. Plan of Care Interventions Electrical Stimulation,Hot Pack/Cold Pack,Manual Therapy,Neuro Re-education,Patient/Caregiver Education,Therapeutic Activities,Therapeutic Exercise PT Services Indicated Yes Treatment Frequency and continue skilled PT 2x weekly for 10 additional Duration visits These treatments will address the objective and functional deficits as defined above. The patient will be advanced safely and appropriately in order for the patient to progress towards his/her prior level of function. Additional exercises will be introduced and as well as a comprehensive home exercise program upon discharge, if needed, ?to ensure carryover of functional gains achieved in the clinic. This treatment plan has been reviewed and agreement upon by the patient.
== END 2025-03-20 23:59 | disposition home or self-care (01) ==
LOC: CHSPT 09:56
PROVIDERS: Visit Provider Orthopaedic Surgery
DX: Z47.89 Encounter for other orthopedic aftercare (principal); M75.21 Bicipital tendinitis, right shoulder
CPT/HCPCS: 97014; 97110; 97140; 97161; 97530; G0283